=== PATIENT | female | born 1975 | race Caucasian/White ===

== ENCOUNTER 2019-12-23 21:54 | Emergency (ER) | payer BC ==
[~2019-12-23] VITALS: Ht 170 cm; Wt 100.0 kg
--- OUTSIDE RECORDS SUMMARY | 2019-12-23 22:00 | XMS REPORT | Continuity of Care Document ---
Author Organization Unknown Address Unknown Phone Unavailable Allergies There is no data. Medications There is no data. Problems There is no data. Procedures There is no data. Results Test Result Range Free T4 - 10/08/19 15:00 Free T4 0.90 ng/dL 0.81-1.61 Free T3 - 10/08/19 15:00 T3, FREE, DIALYSIS, LC/MS-MS 2.38 PG/ML Encounters ACCT No. Visit Date/Time Discharge Status Pt. Type Provider Facility Loc./Unit Complaint [id number] 10/08/2019 08:39:00 10/08/2019 23:59 :00 DIS Outpatient Ventura Yepez [id number] 10/08/2019 08:25:00 10/08/2019 23:59 :00 DIS Outpatient Ventura Yepez [id number] 10/29/2019 11:30:00 020 23:59:59 CLS Preadmit VENTURA YEPEZ SOLE INKER Via [facility] RAD THYROID NODULE [id number] 12/23/2019 21:56:[address] Emergency MASON BURCIAGA DO Via [facility] ER RIGHT RIB PAIN
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
[2019-12-23 22:41] LABS: BILIRUBIN,URINE NEGATIVE (NEGATIVE); CLARITY,URINE CLEAR; COLOR,URINE YELLOW; GLUCOSE, URINE (UA) NEGATIVE (NEGATIVE); KETONES,URINE NEGATIVE (NEGATIVE); LEUKOCYTE ESTERASE ,URINE NEGATIVE (NEGATIVE); NITRITE,URINE NEGATIVE (NEGATIVE); PH,URINE 5.5 (5-9); PROTEIN,URINE NEGATIVE (NEGATIVE)
[2019-12-23] MEDS ORDERED: fentaNYL INJECTION 100 MCG/2 ML AMP IVP ONE (22:45)
[2019-12-23 22:46] LABS: BASOPHILS # (AUTO) 0.1 10^3/uL (0.0-0.1); BASOPHILS % (AUTO) 0 % (0-10); EOSINOPHILS # (AUTO) 0.1 10^3/uL (0.0-0.3); EOSINOPHILS % (AUTO) 1 % (0-10); HEMATOCRIT 42 % (35-52); HEMOGLOBIN 14.4 G/DL (11.5-16.0); LYMPHOCYTES # (AUTO) 2.5 X 10^3 (1.0-4.0); LYMPHOCYTES % (AUTO) 17 % (12-44); MEAN CORPUSCULAR HEMOGLOBIN 29 PG (25-34); MEAN CORPUSCULAR HGB CONC 34 G/DL (32-36); MEAN CORPUSCULAR VOLUME 85 FL (80-99); MEAN PLATELET VOLUME 9.2 FL (7.4-10.4); MONOCYTES % (AUTO) 7 % (0-12); NEUTROPHILS # (AUTO) 11.3 X 10^3 (1.8-7.8); NEUTROPHILS % (AUTO) 76 % (42-75); PLATELET COUNT 322 10^3/uL (130-400); RED CELL DISTRIBUTION WIDTH 12.9 % (10.0-14.5); WHITE BLOOD COUNT 14.9 10^3/uL (4.3-11.0)
[2019-12-23 22:53] LABS: BACTERIA,URINE TRACE /HPF; SQUAMOUS EPITHELIAL CELL,UR RARE /HPF; WBC,URINE 0-2 /HPF
[2019-12-23 22:54] LABS: AMPHETAMINE SCREEN, URINE NEGATIVE (NEGATIVE); BARBITURATE SCREEN URINE NEGATIVE (NEGATIVE); BENZODIAZEPINES SCREEN URINE NEGATIVE (NEGATIVE); CANNABINOID SCREEN, URINE NEGATIVE (NEGATIVE); COCAINE SCREEN URINE NEGATIVE (NEGATIVE); METHADONE STAT NEGATIVE (NEGATIVE); METHAMPHETAMINE SCREEN URINE S NEGATIVE (NEGATIVE); OPIATE SCREEN URINE NEGATIVE (NEGATIVE); OXYCODONE STAT NEGATIVE (NEGATIVE); PROPOXYPHENE STAT NEGATIVE (NEGATIVE); TRICYCLIC ANTIDEPRESSANTS SCRE NEGATIVE (NEGATIVE)
[2019-12-23 22:58] LABS: CHLORIDE 101 MMOL/L (98-107); POTASSIUM 4.4 MMOL/L (3.6-5.0); SODIUM 137 MMOL/L (135-145)
[2019-12-23 22:59] LABS: CALCIUM 9.3 MG/DL (8.5-10.1)
[2019-12-23 23:00] LABS: GLUCOSE 103 MG/DL (70-105); TOTAL PROTEIN 7.6 GM/DL (6.4-8.2)
[2019-12-23 23:01] LABS: CARBON DIOXIDE 24 MMOL/L (21-32)
[2019-12-23 23:02] LABS: BILIRUBIN,TOTAL 0.2 MG/DL (0.1-1.0)
[2019-12-23 23:03] LABS: ALKALINE PHOSPHATASE 83 U/L (40-136)
[2019-12-23 23:04] LABS: GFR ESTIMATED > 60
[2019-12-23 23:05] LABS: BUN/CREATININE RATIO 21
[2019-12-23 23:06] LABS: ALANINE AMINOTRANSFERASE 12 U/L (0-55)
[2019-12-23 23:07] LABS: INR 0.9 (0.8-1.4); MAGNESIUM 1.9 MG/DL (1.6-2.4); PROTHROMBIN TIME PATIENT 12.7 SEC (12.2-14.7)
[2019-12-23 23:08] LABS: CREATINE KINASE 59 U/L (29-168)
[2019-12-23 23:14] LABS: CREATINE KINASE MB 0.7 NG/ML (<6.6)
[2019-12-23 23:31] LABS: LYMPHOCYTES % (MANUAL) 20 %; MONOCYTES % (MANUAL) 10 %; NEUTROPHILS % (MANUAL) 70 %; RBC MORPH NORMAL
[2019-12-23] MEDS ORDERED: NS 100 ML (IVPB) BAG IV ONE (23:45)
[2019-12-23] MEDS ORDERED: IOHEXOL 350 MG/ML 100 ML (OMNIPAQUE 350) VIAL IV ONE (23:45)
[2019-12-23] MEDS ORDERED: HOLD METFORMIN - RECEIVED CONTRAST 20 ML VIAL IV SCH (23:45)
[2019-12-24] MEDS ORDERED: RX-TRAMADOL 50 MG (ULTRAM) TAB PPK#4 PO STA (00:35)
[2019-12-24] MEDS ORDERED: MELO15TA14 PO (00:42)
[2019-12-24] MEDS ORDERED: TRAM-42 PO (00:42)
[2019-12-24] MEDS ORDERED: KETOROLAC 30 MG/ML VIAL IVP ONE (00:45)
[2019-12-24 00:51] VITALS: BP 137/95
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
== END 2019-12-24 00:50 | disposition home or self-care (01) ==
LOC: EDUNIT# 21:54 → ER 21:56
DX: S20.211A Contusion of right front wall of thorax, initial encounter (principal); S30.1XXA Contusion of abdominal wall, initial encounter; S50.01XA Contusion of right elbow, initial encounter; R40.2142 Coma scale, eyes open, spontaneous, at arrival to emergency department; R40.2252 Coma scale, best verbal response, oriented, at arrival to emergency department; R40.2362 Coma scale, best motor response, obeys commands, at arrival to emergency department; E66.9 Obesity, unspecified; Z68.34 Body mass index [BMI] 34.0-34.9, adult; V86.65XA Passenger of 3- or 4- wheeled all-terrain vehicle (ATV) injured in nontraffic accident, initial encounter
CPT/HCPCS: 36415; 71045; 71260; 72170; 73080; 74177; 80053; 80306; 80320; 81000; 82550; 82553; 83735; 83874; 85007; 85027; 85610; 85730; 93041; 96374; 96375

== ENCOUNTER → 2020-01-05 | Outpatient (CLI) | payer BC ==
[~2020-01-05] MED LIST: MELO15TA14 PO; TRAM-42 PO
--- NOTE | 2020-01-05 14:21 | Diagnostic Imaging Report ---
Indication: Right rib pain. Time of exam 12:41 PM There is a questionable nondisplaced fracture along the lateral aspect of the right 7th rib. No pulmonary contusion, effusion or pneumothorax is seen. IMPRESSION: Findings suspicious for right lateral 7th rib fracture. Dictated by: Dictated on workstation # [id number]
== END ==
LOC: RAD 12:23
PROVIDERS: ATTEND Nurse Practitioner
DX: R07.81 Pleurodynia (principal)
CPT/HCPCS: 71100

== ENCOUNTER → 2021-11-06 | Outpatient (CLI) | payer BC ==
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
== END ==
LOC: RAD 15:07
PROVIDERS: ATTEND Nurse Practitioner Family
DX: Z12.31 Encounter for screening mammogram for malignant neoplasm of breast (principal)
CPT/HCPCS: 77063; 77067

== ENCOUNTER 2021-12-07 08:17 | Emergency (ER) | payer BC ==
[~2021-12-07] VITALS: Ht 170 cm; Wt 102.0 kg
--- NOTE | 2021-12-07 08:41 | ED Cardiac General ---
History of Present Illness General Chief Complaint: Cardiac/General Problems Stated Complaint: SVT EPISODE Source: patient Exam Limitations: no limitations History of Present Illness Date Seen by Provider: Dec 07, 2021 Time Seen by Provider: 08:27 Initial Comments Patient is a 45-year-old female who presents to the emergency department today with a chief complaint of feeling like she potentially went into SVT this morning while getting ready for work. Patient states she was in the bathroom when she suddenly had onset of feeling lightheaded, near syncopal, broke out into a sweat. She states she put a cool washcloth on her neck and then sat in her recliner chair. She states, and total symptoms lasted about 20 minutes. The last time she had an episode of SVT was in 2018. She is only on Bystolic as related to her heart/blood pressure. She does not follow with a photograph tinter currently the last time she saw 1 was 2 or 3 years ago at [facility] in [place]. At no time did she experience any chest discomfort or pain. She is a non-smoker. She does have a family history of heart disease in relatives around the age of mid 50s. She has had no recent illnesses such as fevers, chills, cough or congestion. No bowel or bladder complaints. No productive cough. No swelling in her legs. Symptoms are completely resolved by the time she comes to the emergency department. She is on no daily stimulants, no excessive caffeine use. She is not on thyroid replacement therapy. No use of energy drinks. No diet supplements. All other review of systems reviewed and negative except as stated. Timing/Duration: 1 hour Severity: moderate Activities at Onset: none Prior CP/Workup: echocardiography NTG SL PROVIDER EDUCATION SPECIALIST: No ASA po PROVIDER EDUCATION SPECIALIST: No Associated Systoms: Diaphoresis Allergies and Home Medications Allergies Coded Allergies: No Allergy Information Available (Unverified , 12/23/19) Patient Home Medication List Home Medication List Reviewed: Yes Meloxicam (Mobic) 15 Mg Tablet, 15 MG PO DAILY Prescribed by: MASON BURCIAGA on 12/24/1941 Tramadol HCl (Ultram) 50 Mg Tablet, 50 MG PO Q4H Prescribed by: MASON BURCIAGA on 12/24/1941 Review of Systems Review of Systems Constitutional: see HPI EENTM: No Symptoms Reported Cardiovascular: Lightheadedness, Palpitations Genitourinary: No Symptoms Reported Musculoskeletal: no symptoms reported Skin: no symptoms reported Psychiatric/Neurological: No Symptoms Reported All Other Systems Reviewed Negative Unless Noted: Yes Past Mbndabs-Dlmenm-Qrgptw Hx Seasonal Allergies Seasonal Allergies: No Past Medical History Surgeries: Yes (CARDIOVERSION FOR SVT;GASTRIC SLEEVE; HYST; CHOLECYSTECTOMY) Abdominal, Cardiac, Gallbladder, Hysterectomy, Thyroidectomy Respiratory: No Cardiac: Yes (SVT--CARDIOVERSION) Irregular Heartbeat Neurological: No 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 oz. kg; 34.00 BMI Method: General Appearance: No Apparent Distress, WD/WN HEENT: PERRL/EOMI Neck: Normal Inspection, Supple Respiratory: Lungs Clear, Normal Breath Sounds, No Accessory Muscle Use, No Respiratory Distress Cardiovascular: Regular Rate, Rhythm, No Murmur, Normal Peripheral Pulses Gastrointestinal: Normal Bowel Sounds, Non Tender, Soft Extremity: Normal Inspection, Normal Range of Motion, Non Tender, No Calf Tenderness Neurologic/Psychiatric: Alert, Oriented x3, No Motor/Sensory Deficits, Normal Mood/Affect Skin: Normal Color, Warm/Dry Progress/Results/Core Measures Results/Orders My Orders Orders - SPENSER MARTINEZ MD Ekg Tracing (12/07/21 09:36) Vital Signs/I&O 12/07/21 12/07/21 08:20 09:34 Temp 36.0 Pulse 83 80 Resp 19 18 B/P (MAP) 132/85 (101) 117/89 Pulse Ox 99 98 Progress Progress Note : Time: 09:25 Progress Note Patient monitored for approximately an hour. No recurrence of symptoms or SVT. Patient has no clinical or objective findings to warrant a large laboratory evaluation/work-up. She is comfortable and happy with this. EKG was unremark able for any ectopy or abnormal rhythms. She is encouraged to drink lots of water to stay hydrated today, she is given strict return precautions. She verbalized understanding, she seems happy with the plan of care. All questions are sought and answered Initial ECG Impression Date: Dec 07, 2021 Initial ECG Impression Time: 08:29 Initial ECG Rate: 76 Initial ECG Rhythm: Normal Sinus Initial ECG Intervals: Normal Initial ECG Impression: Normal Departure Impression Primary Impression: Palpitations Disposition: 01 HOME, SELF-CARE Condition: Stable Departure-Patient Inst. Decision time for Depature: 08:57 Referrals: NO,LOCAL PHYSICIAN (PCP/Family) Primary Care Physician Patient Instructions: Palpitations Add. Discharge Instructions: Continue your daily home medications as previously prescribed. It is likely a good idea to follow-up with cardiology to further evaluate for possible heart rhythm issues. If at any point you develop any chest pain, discomfort, ache especially with the symptoms you experienced this morning please come back to the emergency room for reevaluation. Follow-up with your primary care provider. SPENSER MARTINEZ MD Dec 07, 2021 08:41
[2021-12-07 09:34] VITALS: BP 117/89
== END 2021-12-07 09:34 | disposition home or self-care (01) ==
LOC: EDUNIT# 08:17 → ER 08:20
DX: R00.2 Palpitations (principal); E66.9 Obesity, unspecified
CPT/HCPCS: 93005